=== PATIENT | female | born 1955 | race Caucasian/White ===

== ENCOUNTER 2024-05-09 08:48 | Emergency (ER) | payer OTHER, SELFPAY ==
[2024-05-09 09:23] LABS: % Basophils 0.9 % (0-2); % Eosinophils 1.3 % (0-6); % Immature Granulocytes 0.5 % (0-0.5); % Lymphocytes 15.2 % (20.5-51.1); % Monocytes 8.5 % (1.7-9.3); % Neutrophils 73.6 % (42.2-75.2); Absolute Basophils 0.1 10^3/uL (0-0.2); Absolute Eosinophils 0.1 10^3/uL (0-0.7); Absolute Immature Granulocytes 0.1 10^3/uL (0-0.05); Absolute Lymphocytes 1.7 10^3/uL (1.2-3.4); Absolute Monocytes 0.9 10^3/uL (0.1-0.6); Hemoglobin 15.4 g/dL (12.0-16.0); Mean Corpuscular Hgb 31.5 pg (27.0-31.0); Mean Platelet Volume 10.8 fL (7.4-10.4); Nucleated Red Blood Cells % 0 %; Platelet Count 310 10^3/uL (130-400); Red Blood Cell Count 4.89 10^6/uL (4.20-5.40); Red Cell Dist. Width 12.4 % (11.5-14.5); White Blood Cell Count 10.9 10^3/uL (4.8-10.8)
[2024-05-09 09:28] LABS: Urine Albumin Trace (Neg - Trace); Urine Bilirubin Negative (Negative); Urine Character Clear (Clear); Urine Color Yellow; Urine Glucose Negative (Negative); Urine Ketone Negative (Negative); Urine Leukocyte Trace (Negative); Urine Nitrite Negative (Negative); Urine Occult Blood Negative (Negative); Urine Urobilinogen Negative (Neg - 1+)
[2024-05-09 09:35] LABS: ALT (SGPT) 45 U/L (0-35); AST (SGOT) 62 U/L (14-36); Albumin 4.2 g/dl (3.5-5.0); Alkaline Phosphatase 127 U/L (38-126); Blood Urea Nitrogen 18 mg/dl (7-17); Calcium 8.8 mg/dl (8.4-10.2); Carbon Dioxide 25 mmol/L (22-30); Chloride 99 mmol/L (98-107); Glucose 103 mg/dl (70-99); Potassium 4.3 mmol/L (3.5-5.1); Sodium 138 mmol/L (135-145); Total Bilirubin 0.7 mg/dl (0.2-1.3); Total Protein 6.5 g/dl (6.3-8.2); eGFR > 60.00
[2024-05-09 09:56] VITALS: BP 131/71
[2024-05-09 09:59] VITALS: BMI 19.5
--- NOTE | 2024-05-09 10:31 | ED.GENMED ---
History of Present Illness
General
Chief Complaint: Rectal Bleeding
Source: patient and spouse
Time Seen by Provider: 05/09/24 09:49
History of Present Illness
History of Present Illness:
69-year-old female who reports rectal bleeding has been ongoing for about a month. Patient states that she initially started with a diarrheal illness after traveling and being around her grandchild who was in the hospital. She states that has
resolved but the bleeding still persist that is intermittent. She has seen colorectal surgery but had a difficult time getting to see a GI doctor. She has finally made an appointment for colonoscopy at the end of May. Patient states she was
told to take Imodium but now she is just constipated. Her bleeding now will consist of dripping in the toilet and seeing blood when she wipes. She was told that she had a fissure as well as a hemorrhoid. Patient also quit smoking 4 days ago after
smoking for 50 years. She also admits that she has not been able to tolerate food like. Colorectal surgery advised her to avoid dairy as well.
Past History
Past History
ED Past Medical History: HTN and Psychiatric (Anxiety)
Social History
Tobacco: Former smoker (50-year smoker, quit April 2024)
Phy Exam
Physical Exam
Physical Exam:
CONSTITUTIONAL Patient alert and oriented to person, place and time. Well-appearing. Vital signs reviewed.
HEAD atraumatic, normocephalic.
EYES eyelids normal to inspection, Extraocular muscles intact, Conjunctiva normal, Sclera normal.
NECK normal range of motion, Trachea midline, no jugular venous distention.
RESPIRATORY CHEST No respiratory distress noted, Chest expansion equal
ABDOMEN abdomen nontender, Bowel sounds normal. No distention.
Rectal exam obvious hemorrhoid noted with thrombosis but no tenderness. There is an open wound on the tip of this hemorrhoid. She also has what appears to be a fissure at the 12:00 lithotomy position. There is kacy bright red blood there. No
stool noted
BACK normal inspection, no obvious deformities
UPPER EXTREMITY range of motion normal, Motor strength normal, no cyanosis, no edema.
LOWER EXTREMITY range of motion normal, Motor strength normal, no cyanosis, no edema.
NEURO Speech normal, No focal motor deficits, [place] coma scale 15, Memory normal, Cranial Nerves intact to screening exam.
SKIN skin warm, dry, and normal in color.
PSYCHIATRIC patient oriented to person place and time, Normal affect.
Course
Orders/Labs/Results
Orders:
Orders
05/09/24 09:06
Complete Blood Count/With Diff Urgent
Comprehensive Metabolic Panel Urgent
Urinalysis Reflex To Culture Urgent
Date Specimen was Collected: 05/09/24
Time Specimen was Collected: 09:05
Urine Microscopic Reflex Cult Urgent
Abnormal Lab Results
05/09/24
09:06
WBC 10.9 H 10^3/uL
(4.8-10.8)
MCH 31.5 H pg
(27.0-31.0)
MPV 10.8 H fL
(7.4-10.4)
Abs Immat Gran (auto) 0.1 H 10^3/uL
(0-0.05)
Absolute Neuts (auto) 8.0 H 10^3/uL
(1.4-6.5)
Absolute Monos (auto) 0.9 H 10^3/uL
(0.1-0.6)
Lymphocytes % 15.2 L %
(20.5-51.1)
BUN 18 H mg/dl
(7-17)
Glucose 103 H mg/dl
(70-99)
AST 62 H U/L
(14-36)
ALT 45 H U/L
(0-35)
Alkaline Phosphatase 127 H U/L
(38-126)
Leukocyte Esterase Rfl Trace A
(Negative)
05/09/24 09:06
05/09/24 09:06
Vital Signs
Initial and Last Documented VS:
Initial Vital Signs
Temp Pulse Resp BP Pulse Ox
98 F 96 16 131/71 96
05/09/24 09:56 05/09/24 09:56 05/09/24 09:56 05/09/24 09:56 05/09/24 09:56
Last Documented Vital Signs
Temp Pulse Resp BP Pulse Ox
98 F 96 16 131/71 96
05/09/24 09:56 05/09/24 09:56 05/09/24 09:56 05/09/24 09:56 05/09/24 09:56
MDM/Problems Addressed
MDM/Problems Addressed:
Rectal bleeding, hemorrhoid, rectal fissure
*Pulse Oximetry
Patient hypoxic: no
*Critical Care Note
Total Time (30-74mins, 75-104mins- exclusive of procedures): Not Applicable
Data Reviewed
Source: patient and spouse
Further Testing Considered But Not Given:
Consider CTA but do not suspect brisk bleeding. Suspect current bleeding related to area around the rectum. No masses felt on rectal exam
Patient Management
Discussion with other providers: Clam Grader (GI)
Escalation/DeEscalation of care consider admission/obs:
Case discussed with gastroenterology. The patient's information was sent to the GI help desk manager [place] text expedite outpatient follow-up this week. Currently the next most appropriate study is a colonoscopy. No indication at this time for CT imaging
ED Attending Note
-
Portions of this chart may have been created with voice recognition software.� Occasional wrong word or��sound alike� substitutions may have occurred due to the inherent limitations of voice recognition software.
Discharge Plan
Departure
Patient Disposition: Home (Routine Discharge)
Date of Disposition: 05/09/24
Time of Disposition: 10:39
Patient with high blood pressure during this ER visit?: No
Discharge Problem:
Rectal bleeding, Hemorrhoid
Instructions: Constipation, Adult (DC), Hemorrhoids (DC), Anal Fissure (DC)
Prescriptions:
No Action
atorvastatin 10 mg Tablet
10 mg PO DAILY
alprazolam 0.25 mg Tablet
0.25 mg PO BIDPRN PRN (Reason: anxiety)
amlodipine 10 mg Tablet
10 mg PO DAILY
fluoxetine [Prozac] 20 mg Capsule
20 mg PO DAILY
Referrals:
Carl Benítez MD [Active] -
Farrah Figueroa CRNP [Family Provider] -
Activity Restrictions/Additional Instructions:
The gastroenterology office should be calling you to arrange follow-up this week. If you do not hear from them by Saturday please call to confirm they received the message. Return immediately for intractable vomiting, bloody stools,
fevers, abdominal pain or any other concerns. Please keep your stools soft and avoid straining
Interventions
Interventions:
*Risk Screen - Suicide Last Done: 05/09/24 08:49
*General Assessment Last Done: 05/09/24 10:00
*Neglect/Abuse Screening Last Done: 05/09/24 08:54
ED- Fall Risk Assessment Last Done: 05/09/24 10:04
FU-Oaccsf-Hsqpgpafla Assessment Last Done: 05/09/24 10:06
ED- Cardiac Assessment Last Done: 05/09/24 10:03
ED- Pulmonary Assessment Last Done: 05/09/24 10:05
Discharge Date and Time
Print Language: MALTESE
[2024-05-09 10:48] LABS: Urine Bacteria Few (Negative); Urine Hyaline Cast >15 /LPF (0-2); Urine Red Blood Cell None Seen /HPF (0-2); Urine White Cell 0-2 /HPF (0-5)
== END 2024-05-09 11:00 | disposition home or self-care (01) ==
LOC: EMR 08:48
PROVIDERS: Student in an Organized Health Care Education/Training Program; EMERGENCY PHYSICIAN Emergency Medicine; FAMILY PHYSICIAN Nurse Practitioner
DX: K62.5 Hemorrhage of anus and rectum (principal); K64.9 Unspecified hemorrhoids; F41.9 Anxiety disorder, unspecified; I10 Essential (primary) hypertension; K59.00 Constipation, unspecified; Z87.891 Personal history of nicotine dependence
CPT/HCPCS: 99283; 80053; 81003; 81015; 85025

== ENCOUNTER 2024-05-22 07:26 | Emergency (ER) | payer OTHER, SELFPAY ==
[2024-05-22 07:27] VITALS: BP 143/70
--- NOTE | 2024-05-22 08:00 | ED.SKININJ ---
HPI-Injury
General
Chief Complaint: Bite
Time Seen by Provider: 05/22/24 07:32
History of Present Illness-Injury
Initial Injury comments:
69-year-old female presents for evaluation of a left forearm wound from a dog bite. She is dog sitting for her son, was bit by a large dog, dog is up-to-date on rabies vaccines. Denies any numbness or weakness to the left hand. Her last tetanus
is unknown
Past History
Past History
ED Past Medical History: HTN and Psychiatric (Anxiety)
Social History
Tobacco: Former smoker (50-year smoker, quit April 2024)
Review of Systems
Review of Systems
Allergies reviewed?: Yes
All Other Systems: ROS reviewed and negative except as documented in HPI and ROS
Phy Exam
Physical Exam
Physical Exam:
GEN: Well appearing, NAD, WDWN
HEENT: Oral mucosa moist, no scleral icterus
Cardiac: Regular rate
Lung: No respiratory distress, no tachypnea
MSK: Large 4 to 5 cm wound to the left dorsal forearm distal to the elbow, exposed fascial layer with no fascial violation, no exposed tendinous structures. Normal left wrist and left finger range of motion. No foreign bodies
Skin: Good color, no pallor or jaundice, no rashes
Neuro: AO x3, moves all extremities freely
Psych: Calm, cooperative
Course
Orders/Labs/Results
Orders:
Orders
05/22/24 08:05
Alprazolam [Xanax] 0.25 mg PO NOW STA
Tetanus/Diphth/Acelpertussis [Adacel] 0.5 ml IM .ONCE ONE
Vital Signs
Initial and Last Documented VS:
Initial Vital Signs
Temp Pulse Resp BP Pulse Ox
98.2 F 103 16 143/70 97
05/22/24 07:27 05/22/24 07:27 05/22/24 07:27 05/22/24 07:27 05/22/24 07:27
Last Documented Vital Signs
Temp Pulse Resp BP Pulse Ox
98.2 F 87 16 142/77 96
05/22/24 07:27 05/22/24 08:43 05/22/24 08:43 05/22/24 08:43 05/22/24 08:43
Procedures
Laceration Closure
Left Arm:
Status of Wound: clean
Size of Wound in cm: 5
Description of Wound Edges: ragged and flap-poorly vascularized
Preparation: cleaned with soap & water and cleaned with saline
Anesthesia: 1% Lidocaine with epi
Wound exploration: extensive cleaning of contaminated wound
Skin Closure Material: 4-0 nylon
Number of sutures: 3
MDM/Problems Addressed
MDM/Problems Addressed:
The wound was loosely reapproximated due to severe epidermal loss, no evidence of muscular or tendon injury, will provide prophylactic antibiotics
*Critical Care Note
Total Time (30-74mins, 75-104mins- exclusive of procedures): Not Applicable
ED Attending Note
-
Portions of this chart may have been created with voice recognition software.� Occasional wrong word or��sound alike� substitutions may have occurred due to the inherent limitations of voice recognition software.
Discharge Plan
Departure
Patient Disposition: Home (Routine Discharge)
Date of Disposition: 05/22/24
Time of Disposition: 08:53
Patient with high blood pressure during this ER visit?: No
Discharge Problem:
Dog bite of left forearm
Instructions: Animal Bites (DC), Wound Care (DC)
Prescriptions:
New
amoxicillin-pot clavulanate 875-125 mg tablet
1 tab PO BID 5 Days Qty: 10 0RF
hydrocodone-acetaminophen 5-325 mg tablet
1 tab PO BID PRN (Reason: Pain) Qty: 6 0RF
No Action
atorvastatin 10 mg Tablet
10 mg PO DAILY
alprazolam 0.25 mg Tablet
0.25 mg PO BIDPRN PRN (Reason: anxiety)
amlodipine 10 mg Tablet
10 mg PO DAILY
fluoxetine [Prozac] 20 mg Capsule
20 mg PO DAILY
Referrals:
Haily Rodriguez DO [Family Provider] -
Activity Restrictions/Additional Instructions:
Clean wound daily with soap and water
Cover with the oil dressing daily for 5 days
Follow up with your primary doctor in 7-10 days for wound re-evaluation
Interventions
Interventions:
*Risk Screen - Suicide Last Done: 05/22/24 07:27
*General Assessment Last Done: 05/22/24 07:27
*Neglect/Abuse Screening Last Done: 05/22/24 07:27
ED- Fall Risk Assessment Last Done: 05/22/24 09:13
*ED COVID-19 Vaccine History Last Done: 05/22/24 08:37
*Nursing Disposition Last Done: 05/22/24 09:13
ED-Skin Assessment Last Done: 05/22/24 08:37
Discharge Date and Time
Discharge Date/Time: 05/22/24 09:14
Print Language: [place]
[2024-05-22] MEDS: XANAX 0.25 MG PO (08:09)
[2024-05-22] MEDS: ADACEL 0.5 ML IM (08:10)
--- NOTE | 2024-05-22 08:36 | EDRN ---
Bite irrigated extensively w/ saline as requested by Lula LAINEZ.
[2024-05-22 08:38] VITALS: BMI 19.3
[2024-05-22 08:39] VITALS: BMI 19.3
--- NOTE | 2024-05-22 08:40 | EDRN ---
Lula LAINEZ in room w/ pt.
[2024-05-22 08:43] VITALS: BP 142/77
== END 2024-05-22 09:14 | disposition home or self-care (01) ==
LOC: EMR 07:26
PROVIDERS: EMERGENCY PHYSICIAN Emergency Medicine; FAMILY PHYSICIAN Internal Medicine
DX: S51.852A Open bite of left forearm, initial encounter (principal); W54.0XXA Bitten by dog, initial encounter; Z23 Encounter for immunization; I10 Essential (primary) hypertension; F41.9 Anxiety disorder, unspecified; Z87.891 Personal history of nicotine dependence
CPT/HCPCS: 99282; 12002; 90471; 90715

== ENCOUNTER → 2024-06-18 07:39 | Outpatient (REF) | payer OTHER, SELFPAY | LOC: HWRAD 07:39 | PROVIDERS: ATTENDING PHYSICIAN Internal Medicine Gastroenterology; FAMILY PHYSICIAN Internal Medicine | DX: R79.89 Other specified abnormal findings of blood chemistry (principal) | CPT/HCPCS: 76700 ==

== ENCOUNTER → 2024-06-19 06:16 | Day surgery (SDC) | payer OTHER, SELFPAY | LOC: GI 06:16 | PROVIDERS: ATTENDING PHYSICIAN Internal Medicine Gastroenterology | DX: R19.4 Change in bowel habit (principal); K64.8 Other hemorrhoids; K57.30 Diverticulosis of large intestine without perforation or abscess without bleeding; K55.20 Angiodysplasia of colon without hemorrhage; K44.9 Diaphragmatic hernia without obstruction or gangrene; K31.89 Other diseases of stomach and duodenum; D12.2 Benign neoplasm of ascending colon; D12.5 Benign neoplasm of sigmoid colon; D12.4 Benign neoplasm of descending colon; D12.8 Benign neoplasm of rectum; K29.50 Unspecified chronic gastritis without bleeding | CPT/HCPCS: 45385; 43239; 88305; 88342 ==

== ENCOUNTER → 2024-07-24 06:18 | Day surgery (SDC) | payer OTHER, SELFPAY ==
[2024-07-24 13:15] VITALS: BP 122/78
[2024-07-24 13:18] VITALS: BMI 19.1
[2024-07-24 13:21] VITALS: BMI 19.1
[2024-07-24 15:01] VITALS: BP 119/70
[2024-07-24 15:15] VITALS: BP 142/78
[2024-07-24 15:30] VITALS: BP 141/79
== END ==
LOC: GI 06:18
PROVIDERS: ATTENDING PHYSICIAN Internal Medicine Gastroenterology
DX: C18.7 Malignant neoplasm of sigmoid colon (principal); K57.30 Diverticulosis of large intestine without perforation or abscess without bleeding; K64.0 First degree hemorrhoids
CPT/HCPCS: 45349; 45331; 88305; 88342

== ENCOUNTER 2025-06-04 06:12 | Day surgery (SDC) | payer OTHER, SELFPAY | END 2025-06-04 10:51 | disposition home or self-care (01) | LOC: GI 06:12 | PROVIDERS: ATTENDING PHYSICIAN Internal Medicine Gastroenterology | DX: Z85.038 Personal history of other malignant neoplasm of large intestine (principal); K64.8 Other hemorrhoids | CPT/HCPCS: 45330 ==